=== PATIENT | female | born 1990 | race Caucasian/White ===

== ENCOUNTER 2020-09-21 22:20 | Emergency (ER) | payer SELFPAY ==
[2020-09-21 22:47] VITALS: BP 177/111; PULSE 88; RESP 14; TEMP 36.9; O2SAT 99; BMI 31.4
[2020-09-21 23:57] VITALS: BP 173/89; PULSE 83; O2SAT 97
--- NOTE | 2020-09-22 00:04 | ED_ITS ---
HPI - Female Genitourinary General: Chief complaint: Vaginal Bleeding Stated complaint: MENSTRUAL ISSUES Time Seen by Provider: 09/21/20 23:56 History of Present Illness: HPI Narrative: Patient is a 29-year-old female comes to the ED with have a abnormal vaginal bleeding. Patient says that she had tubal ligation 3 years ago and ever since then she is had abnormal bleeding. Patient says she has a past medical history of cervical cancer. Earlier this month patient had a 6-day stretch of bleeding that resolved and then for the past 8 days she has had heavy bleeding as well. Today patient says she has used at least 5 heavy pads she says this pattern of bleeding has been going on for the past couple years. She also says she has some lower pelvic cramping pain. She rates the pain an 8 out of 10. She came into the ED tonight because she wanted to try to figure out what is going on with her bleeding. She says she has been a patient for Dr. Jolley in the past, but has not been to [place]'s health [place] [facility] [place]. Denies any vaginal lesions, STDs, fever, chills, nausea/vomiting, constipation, diarrhea, dysuria or hematuria. Associated symptoms: Deny abdominal pain, headache(s), nausea or vaginal discharge Review of Systems Const: Denies: fever(s), chills or fatigue Eyes: Denies: change in vision or eye discomfort ENMT: Denies: throat pain, odynophagia, nasal discharge or nasal congestion Card: Denies: chest pain, palpitations, edema, swelling of feet/ankles, dyspnea on exertion or orthopnea Resp: Denies: dyspnea, productive cough or non-productive cough GI: Denies: abdominal pain, nausea, vomiting, diarrhea, constipation or hematochezia : Reports: vaginal bleeding and pelvic pain; Denies: flank pain, dysuria, hematuria, genital lesions or vaginal discharge Musc: Denies: neck pain, back pain or extremity swelling Skin/Breast: Denies: rash or new lesions Neuro: Denies: headache(s), numbness in extremities or weakness in extremities Physical Exam Const: COMMON NORMALS: no acute distress, patient oriented x3 and alert GENERAL APPEARANCE: cooperative and comfortable NUTRITIONAL APPEARANCE: overweight HENMT: COMMON NORMALS: normocephalic HEAD & SCALP: normocephalic MOUTH: Normal oral and palatal mucosa present THROAT: posterior oropharynx normal and uvula midline Neck/C-Spine: COMMON NORMALS: supple GENERAL: Yes normal visual inspection Resp: COMMON NORMALS: normal respiratory effort, No retractions, No use of accessory muscles and clear to auscultation bilaterally AUSCULTATION: clear to auscultation bilaterally Cardio: COMMON NORMALS: regular rate, regular rhythm, S1 normal heart sound present, S2 normal heart sound present, No gallops present (Cardio), No clicks present (Cardio), No murmurs present (Cardio) and Peripheral pulses 2+ throughout RATE: regular rate RHYTHM: regular rhythm HEART SOUNDS: S1 normal heart sound present and S2 normal heart sound present PERIPHERAL PULSES: Peripheral pulses 2+ throughout GI: COMMON NORMALS: Normal to inspection, nondistended, normoactive bowel sounds present, Soft to palpation, non-tender and no masses PALPATION: Yes Soft to palpation and Yes Tenderness to palpation present (GI) (Mild lower pelvic tenderness.) : COMMON NORMALS: Yes no CVA tenderness BLADDER/KIDNEY EXAM: Yes no CVA tenderness Back/Pelvis: COMMON NORMALS: no CVA tenderness Extremity: COMMON NORMALS: normal to inspection Neuro: COMMON NORMALS: patient oriented x3 and moves all extremities SENSORIUM/ORIENTATION: Yes alert Skin: GENERAL SKIN EXAM: dry skin Course Vital Signs: Vital signs: Vital Signs Temperature 98.5 F 09/21/20 22:47 Pulse Rate 79 09/22/20 01:15 Respiratory Rate 17 09/22/20 01:15 Blood Pressure 146/81 09/22/20 01:15 Pulse Oximetry 97 09/22/20 01:15 MDM - Female MDM Narrative: Medical decision making narrative: Patient is a 29-year-old female comes to the ED with chronic menorrhagia over the past 2 years. CBC and CMP were unremarkable. hCG quant 0.5. Pelvic ultrasound was performed and prelim report showed no acute findings but study was limited due to patient refusing transvaginal ultrasound. Patient said that she was a past patient for Dr. Jolley but has not seen her in a while. I told her I would put a referral in to case management for them to set up an appointment with [facility]. She is diagnosed with menorrhagia and given return to ED precautions. She was told that case management will be contacting her in the next several days set up appointment with women's health at [facility]. Patient understood and agreed with plan. Lab Data: Attestation: I reviewed the patient's lab results. Labs: Lab Results 09/22/20 09/22/20 09/22/20 Range/Units 00:04 00:04 00:04 WBC 7.5 (4.0-10.0) 10^3/ uL RBC 4.47 (4.1-5.3) 10^6/u L Hgb 13.7 (11.5-15.3) g/dL Hct 42.6 (37.0-47.0) % MCV 95.3 (81-99) fL MCH 30.6 (28.0-34.0) pg MCHC 32.2 (30.0-36.0) g/dL RDW 13.2 (12.1-15.1) % Plt Count 482 H (130-400) 10^3/c mm MPV 9.7 (7.4-10.4) fL Neut % (Auto) 50.3 % Lymph % (Auto) 38.0 % [place] % (Auto) 8.2 % Eos % (Auto) 2.3 % Baso % (Auto) 1.1 % Neut # (Auto) 3.76 (1.8-7.7) 10^3/u L Lymph # (Auto) 2.8 (0.8-4.8) 10^3/u L [place] # (Auto) 0.6 (0.2-0.9) 10^3/u L Eos # (Auto) 0.2 (0.0-0.8) 10^3/u L Baso # (Auto) 0.1 (0.0-0.1) 10^3/u L Nucleated RBC % (a uto) 0 % Nucleated RBCs # 0.0 /100WBC Sodium 140 (136-145) mmol/L Potassium 3.8 (3.5-5.1) mmol/L Chloride 106 (98-107) mmol/L Carbon Dioxide 23 (22-29) mmol/L Anion Gap 14.8 (5-19) BUN 11 (6-20) mg/dL Creatinine 0.7 (0.5-0.9) mg/dL GFR Calculation 97.6 (90-130) mL/min Glucose 108 (65-115) mg/dL Calculated Osmolal ity 290 (285-295) mOsm/k g Calcium 9.0 (8.5-10.5) mg/dL Total Bilirubin 0.2 (0.15-1.2) mg/dL AST 16 (0-32) U/L ALT 15 (0-33) U/L Alkaline Phosphata se 92 (35-105) IU/L Total Protein 6.9 (6.6-8.7) g/dL Albumin 3.8 (3.5-5.2) g/dL Globulin 3.1 (1.3-4.6) g/dL Ser , Ravi i-Qnt 0.50 mIU/mL Imaging Data: US: Attestation: I personally reviewed and interpreted this imaging study as follows: Radiologist's impression: Pelvic ultrasound?prelim report-vascular technologist sonographer wanted to do a transvaginal ultrasound as well to get better imaging but patient refused. Prelim report showed no acute findings. Pending final radiology report. Discharge Plan Discharge Patient Disposition: Home Clinical Impression: Menorrhagia Qualifiers: Menorrhagia type: with irregular cycle Qualified Code(s): N92.1 - Excessive and frequent menstruation with irregular cycle Condition: Stable Discharge Orders: Discharge Order (Routine); Ordered 09/22/20 Ordered By: Pb Trejo Discharge Diet: Regular Discharge Activity: Resume usual activity Patient Instructions: Menorrhagia (ED) Activity Restrictions/Additional Instructions: Follow-up with medical provider as directed. Case management should be contacting you in the next several days to set up an appointment with [facility] [place]. Take [id number] Tylenol or ibuprofen for pain. Return to the ER or your medical provider if condition worsens. Please read and understand discharge instructions. If any questions, please ask. Coding Level of Care Code ED Campus Executive Director for Obie Fwd Exam Comprehensive
[2020-09-22 00:24] LABS: Basophils # 0.1 10^3/uL (0.0-0.1); Basophils % 1.1 %; Eosinophils # 0.2 10^3/uL (0.0-0.8); Eosinophils % 2.3 %; Hematocrit 42.6 % (37.0-47.0); Hemoglobin 13.7 g/dL (11.5-15.3); Lymphocytes # 2.8 10^3/uL (0.8-4.8); Mean Corpuscular HGB Conc 32.2 g/dL (30.0-36.0); Mean Corpuscular Hemoglobin 30.6 pg (28.0-34.0); Mean Corpuscular Volume 95.3 fL (81-99); Mean Platelet Volume 9.7 fL (7.4-10.4); Monocytes # 0.6 10^3/uL (0.2-0.9); Monocytes % 8.2 %; Neutrophils # 3.76 10^3/uL (1.8-7.7); Neutrophils % 50.3 %; Nucleated Red Blood Cells % 0 %; Platelet Count 482 10^3/cmm (130-400); Red Blood Count 4.47 10^6/uL (4.1-5.3); Red Cell Distribution Width 13.2 % (12.1-15.1); White Blood Count 7.5 10^3/uL (4.0-10.0)
[2020-09-22] MEDS: HYDROcodone-acetaminophen 5-325 mg Tablet 1 TAB PO (00:47)
--- NOTE | 2020-09-22 00:47 | US_ITS ---
WS: [id number] ULTRASOUND PELVIS TECHNIQUE: Transabdominal. Patient deferred transvaginal. CLINICAL INFORMATION: vaginal bleeding and pelvic pain LMP: Irregular menses since ablation 2017 : No. COMPARISON: None. FINDINGS: Limited study due to body habitus and uterine position. History of uterine ablation. Uterus is retroverted Orientation: Retroverted/retroflexed Size: 9.2 cm x 5.2 cm x 4.5 cm Masses: None. Endometrium not well evaluated on the transabdominal examination. Adnexa: Neither ovary is visualized. Free fluid: None. Other findings: None. US/US pelvic complete* [id number] IMPRESSION: 1. Technically difficult examination. Patient deferred transvaginal. 2. Neither ovary is visualized today. 3. No free fluid in the cul-de-sac. 4. Retroverted/retroflexed uterus appears within normal limits. Endometrium n ot well visualized on transabdominal exam
[2020-09-22 00:55] LABS: Alanine Aminotransferase 15 U/L (0-33); Albumin Level 3.8 g/dL (3.5-5.2); Alkaline Phosphatase 92 IU/L (35-105); Anion Gap 14.8 (5-19); Aspartate Amino Transferase 16 U/L (0-32); Blood Urea Nitrogen 11 mg/dL (6-20); Carbon Dioxide 23 mmol/L (22-29); Chloride 106 mmol/L (98-107); Globulin 3.1 g/dL (1.3-4.6); Glomerular Filtration Rate 97.6 mL/min (90-130); Glucose 108 mg/dL (65-115); Osmolality Calculated 290 mOsm/kg (285-295); Potassium 3.8 mmol/L (3.5-5.1); Sodium 140 mmol/L (136-145); Total Bilirubin 0.2 mg/dL (0.15-1.2); Total Protein 6.9 g/dL (6.6-8.7)
[2020-09-22 01:15] VITALS: BP 146/81; PULSE 79; RESP 17; O2SAT 97
--- NOTE | 2020-09-22 15:08 | DCPLANNER ---
multimedia services manager had message to schedule a follow up appointment for patient with [facility]'s [facility]. multimedia services manager called the [facility] care clinic, spoke with Whitley, gave clinic patients information. multimedia services manager was told that patients information will be printed and reviewed. Clinic will call patient with appointment information.
--- NOTE | 2020-09-24 10:10 | DCPLANNER ---
Patient has a follow up appointment scheduled for Wednesday, October 07, 2020 at 10:[address] Reno at [facility]. Clinic will call patient with appointment information.
--- NOTE | 2020-10-10 07:43 | DCPLANNER ---
Patient had a follow up appointment scheduled for 10.07.20 with [facility] - patient did attend appointment.
== END 2020-09-22 02:00 | disposition home or self-care (01) ==
PROVIDERS: Emergency Provider Physician Assistant
DX: N92.1 Excessive and frequent menstruation with irregular cycle (principal); Z85.41 Personal history of malignant neoplasm of cervix uteri
CPT/HCPCS: 12345; 76856; 80053; 84702; 85025; 99282; 99283

== ENCOUNTER → 2020-10-07 11:20 | Outpatient (BNVA) | payer SELFPAY | PROVIDERS: Visit Provider Obstetrics & Gynecology | DX: N93.8 Other specified abnormal uterine and vaginal bleeding (principal); R10.2 Pelvic and perineal pain; G89.29 Other chronic pain; N92.1 Excessive and frequent menstruation with irregular cycle; Z12.4 Encounter for screening for malignant neoplasm of cervix | CPT/HCPCS: 83001; 84146; 84443; 84702; 85025; 88175 ==

== ENCOUNTER → 2020-10-08 13:07 | Outpatient (BNVA) | payer SELFPAY | PROVIDERS: Visit Provider Obstetrics & Gynecology | DX: N92.0 Excessive and frequent menstruation with regular cycle (principal); N83.291 Other ovarian cyst, right side; N83.292 Other ovarian cyst, left side | CPT/HCPCS: 76830 ==

== ENCOUNTER → 2021-01-08 13:23 | Outpatient (BNVA) | payer SELFPAY | PROVIDERS: Visit Provider Obstetrics & Gynecology | DX: D25.0 Submucous leiomyoma of uterus (principal); D25.1 Intramural leiomyoma of uterus; Z20.822 Contact with and (suspected) exposure to COVID-19; D25.2 Subserosal leiomyoma of uterus; G89.29 Other chronic pain; N93.9 Abnormal uterine and vaginal bleeding, unspecified; R10.2 Pelvic and perineal pain | CPT/HCPCS: 87635 ==

== ENCOUNTER 2021-01-14 16:54 | Observation (INO) | payer SELFPAY ==
[2021-01-12 11:55] VITALS: BMI 46.7
[2021-01-12 12:25] LABS: OR HCG Qualitative Urine Negative (Negative)
--- NOTE | 2021-01-12 12:28 | ANES.PREANE2 ---
Pre-Anesthetic Assessment Pre-Anesthetic Assessment: Height/Weight: Height 1.68 m Weight 131.542 kg Preop Diagnosis: Menorrhagia, chronic pelvic pain, uterine leiomyoma Proposed Procedure: Operation Date: 01/14/21 13:05 Proposed Procedures p Total Vaginal Hysterectomy 96814 r10.2 n93.9 d25.9(Not Applicable) - Aubrey Reno MD Familial anesthetic complications: NOne Social: Social History: Tobacco and No alcohol Exam: Pre-Anes Outpt Exam: alert, oriented x 3, clear to auscultation bilaterally and regular rate & rhythm Airway: Cervical ROM: WNL MP: 3 Dentition: Full Metabolic: Metabolic: Morbid obesity Anesthetic Plan: ASA status: 2 Anesthesia: General Risk of > 500 ml blood loss (7ml/kg in children): No PFSH Anesthesia PFSH: Medical History (Updated 11/10/20 @ 13:26 by Maryuri Poon LPN) Menorrhagia Family History Father Hypertension Heart disease Mother Hypertension Heart disease Grandfather Colon cancer, Onset Age: 70 paternal Denies family history of Ovarian cancer Diabetes Clotting disorder Hyperlipidemia Breast cancer Anesthesia complication Bleeding disorder Uterine cancer Thyroid condition Stroke Social History (Updated 01/12/21 @ 08:57 by Kelsey Serrano) Smoking and tobacco status: current every day smoker cigarettes Packs smoked per day: 0.5 Alcohol intake: current Alcohol intake frequency: holidays/special occasions only Alcohol type: wine Substance/Drug Use: never Data Anesthesia Other Labs: Laboratory Results - last 48 hr 01/12/21 11:53 Urine HCG, Qual Negative Cardiac Studies: No Data to Display
[2021-01-12 12:34] LABS: Add Urine Microscopic? NO
[2021-01-12 12:47] LABS: Basophils # 0.1 10^3/uL (0.0-0.1); Basophils % 0.7 %; Eosinophils # 0.1 10^3/uL (0.0-0.8); Eosinophils % 1.1 %; Hematocrit 37.7 % (37.0-47.0); Hemoglobin 12.5 g/dL (11.5-15.3); Lymphocytes # 2.6 10^3/uL (0.8-4.8); Lymphocytes % 29.9 %; Mean Corpuscular HGB Conc 33.2 g/dL (30.0-36.0); Mean Corpuscular Hemoglobin 31.5 pg (28.0-34.0); Monocytes # 0.7 10^3/uL (0.2-0.9); Neutrophils # 5.24 10^3/uL (1.8-7.7); Neutrophils % 60.1 %; Nucleated Red Blood Cells % 0 %; Platelet Count 470 10^3/cmm (130-400); Red Blood Count 3.97 10^6/uL (4.1-5.3); Red Cell Distribution Width 13.1 % (12.1-15.1); White Blood Count 8.7 10^3/uL (4.0-10.0)
[2021-01-12 12:57] LABS: Anion Gap 13.7 (5-19); Blood Urea Nitrogen 7 mg/dL (6-20); Calcium 8.5 mg/dL (8.5-10.5); Carbon Dioxide 23 mmol/L (22-29); Chloride 106 mmol/L (98-107); Glucose 95 mg/dL (65-115); Osmolality Calculated 286 mOsm/kg (285-295); Potassium 3.7 mmol/L (3.5-5.1); Sodium 139 mmol/L (136-145)
[2021-01-12 13:09] LABS: Urine Appearance Clear (CLEAR); Urine Color Yellow (Yellow); pH Urine 7 (5-7)
[2021-01-12 13:10] LABS: Bilirubin Urine Neg (Negative); Blood Urine Neg (Negative); Glucose Urine UA Norm (Normal); Ketones Urine Negative (Negative); Leukocyte Esterase Urine Negative (Negative); Nitrate Urine Negative (Negative); Protein Urine Neg (Negative); Urobilinogen Urine Norm (Negative)
[2021-01-14] VITALS (15 sets, daily range): BP systolic 117–150; BP diastolic 68–107; PULSE 53–88; RESP 13–23; TEMP 36.1–37.2; O2SAT 91–99
[2021-01-14] MEDS: sodium chloride 0.9% 500 ML IV (12:03)
[2021-01-14] MEDS: scopolamine 1.5 Patch 1 PATCH TRANSDERMA (12:04)
[2021-01-14 12:23] LABS: OR HCG Qualitative Urine Negative (Negative)
[2021-01-14] MEDS: vancomycin 1,000 MG in sodium chloride 0.9% 250 ML 250 MG IV (12:30)
[2021-01-14] MEDS: sodium chloride 0.9% 1,000 ML 30 ML IV (12:52)
--- NOTE | 2021-01-14 13:22 | P.ANESUD_ITS ---
Pre-Anesthetic Update Pre-Anesthetic Assessment: Date of Surgery/Procedure: 01/14/21 Preop Lisa gnosis: Menorrhagia, chronic pelvic pain, uterine leiomyoma Proposed Procedure: Operation Date: 01/14/21 13:05 Proposed Procedures p Total Vaginal Hysterectomy 08211 r10.2 n93.9 d25.9(Not Applicable) - Aubrey Reno MD Any changes to Pre-Anesthetic Assessment?: No Last Intake: Intake Last Liquid Date 01/13/21 Last Liquid Time 23:59 Last Solid Date 01/13/21 Last Solid Time 22:00 Labs Last 48hrs: Laboratory Results - last 48 hr 01/12/21 01/14/21 12:18 12:21 Urine HCG, Qual Negative Blood Type O Positive Rho(D) Type Positive / 4+ Antibody Screen Negative Vitals: Temperature 97.8 F 01/14/21 11:39 Temperature Source Temporal Artery S can 01/14/21 11:39 Pulse Rate 80 01/14/21 11:39 Respiratory Rate 16 01/14/21 11:39 Blood Pressure 150/107 01/14/21 11:39 Blood Pressure Renuka n 121 01/14/21 11:39 Pulse Oximetry 96 01/14/21 11:39 Oxygen Delivery Me thod 01/14/21 11:39 Exam: Pre-Anes Outpt Exam: alert, oriented x 3, clear to auscultation bilaterally and regular rate & rhythm Cardiac Studies: No Data to Display
--- NOTE | 2021-01-14 14:15 | W.PM.OPSUD ---
Surgery/Procedure H&P Update DATE OF PROCEDURE: January 14, 2021 DATE H&P PERFORMED: 01/12/21 H&P UPDATE INFORMATION: I have reviewed H&P completed within last 30 days, I have examined patient prior to procedure and No changes to prior documentation PREOP DIAGNOSIS: Menorrhagia, chronic pelvic pain, uterine leiomyoma PLANNED PROCEDURE: Operation Date: 01/14/21 13:05 Proposed Procedures p Total Vaginal Hysterectomy 37844 r10.2 n93.9 d25.9(Not Applicable) - Aubrey Reno MD
[2021-01-14] MEDS: levofloxacin-dextrose 5 % 500 MG/100 ML PREMIX 100 MG IV (15:01)
--- NOTE | 2021-01-14 16:25 | PM.OP ---
Operative Report Date of procedure: January 14, 2021 Pre-op Diagnosis: Menorrhagia, chronic pelvic pain, uterine leiomyoma Post-op diagnosis: same Post-op Findings: Enlarged uterus Procedure Done: Total vaginal hysterectomy Pathology: Uterus Surgeon: Aubrey Reno MD Anesthesia: General Estimated blood loss (mL): 200 IV fluids (mL): 1,100 Urine output (mL): 300 Complications: None Findings: Enlarged uterus Condition: stable Disposition: PACU Brief History: 30-year-old female with abnormal uterine bleeding unresponsive to medical management chronic pelvic pain unresponsive to medical management and uterine leiomyoma. Procedure: After informed consent and risks, benefits, indications and alternatives reviewed with the patient was taken to the operating room. The patient was placed in dorsal lithotomy position prepped, and draped in the usual sterile fashion. The pre-procedure timeout verifying the correct patient, procedure, site and side, could not requirements was performed and acknowledge by the OR team. A Frances catheter was placed. A Bookwalter vaginal retractor was placed into the vagina in usual manner visualize the cervix. Cervix was grasped with a single tooth tenaculum and circumferentially infiltrated with 1% Xylocaine with epinephrine. Then cervix was circumferentially incised with bovie and the bladder was dissected off the pubovesical cervical fascia anteriorly with a sponge stick and Metzenbaum scissors. The anterior peritoneal reflection was identified and the anterior cul-de-sac was entered sharply with Metzenbaum scissors. The same procedure was performed posteriorly and a posterior colpotomy was made through the posterior cul-de-sac space without difficulty and the posterior blade of the Bookwalter vaginal retractor was advanced posteriorly into the cul-de-sac. At this time, the left and right uterosacral ligaments were isolated and ligated with 0 Vicryl. The Enseal device was placed over the uterosacral ligaments on either side and was then used in a serial fashion up through the cardinal ligaments bilaterally cross-clamped, cut, and sealed with the Enseal device. Finally, the uterine arteries were cross-clamped, cut, sealed and ligated with the Enseal device. Hemostasis was assured. The broad ligaments were then serially clamped, sealed and cut with the Enseal device on both sides. Excellent hemostasis was visualized. Both cornua were clamped, sealed and cut with the Enseal device. Then the pedicles were then suture ligated with excellent hemostasis. The uterus was excised and submitted for pathologic evaluation. No other abnormalities were noted in the pelvic cavity. The peritoneum was then closed in a pursestring fashion with 0 Vicryl suture. The vaginal cuff angles were closed with [id number] #0 Vicryl suture on both sides and transfixed with the ipsilateral cardinal and uterosacral ligaments. The patient was given indigo carmine. the remainder of the vaginal cuff was closed with #0 Vicryl in a running locked fashion. Frances catheter was yielding clear blue urine. A vaginal packing with Premarin cream was placed and the patient was taken out of dorsal lithotomy position and awakened from the general anesthesia. The patient tolerated the procedure well and was taken to the PACU recovery room in a stable condition. Sponge, lap, needle and instruments counts were correct x3.
--- NOTE | 2021-01-14 16:42 | SUR.PHASEI ---
1635 PATIENT TO PACU FROM OR. RR EVEN AND UNLABORED. PWD. PATEL CATH IN PLACE. SIMPLE MASK AT 10L, SPO2 97%
[2021-01-14] MEDS: ketorolac 30 mg/mL INJ IVP ×2 (17:08→23:06)
[2021-01-14] MEDS: HYDROcodone-acetaminophen 5-325 mg Tablet PO (17:28)
--- NOTE | 2021-01-14 17:31 | SUR.PHASEI ---
1711 PATIENT TO OB AT THIS TIME. RR EVEN AND UNLABORED. NO DISTRESS. PATEL CATH IN PLACE.
--- NOTE | 2021-01-14 20:24 | ANE.PACU2 ---
Inpatient post-anesthesia follow up: Airway intact: Yes Vital signs: Temperature 98.1 F Pulse Rate 88 Respiratory Rate 20 Blood Pressure 137/73 Pulse Oximetry 96 Oxygen Delivery Me thod Room Air Oxygen Flow Rate 10 Fraction of Inspir ed Oxygen Hydration adequate: Yes Nausea and vomiting: No Pain level: 2 Mental status: Baseline
[2021-01-14] MEDS: acetaminophen 325 mg Tablet 650 MG PO (22:15)
--- NOTE | 2021-01-14 23:00 | PC.NURSE ---
Patient up to chair. Tolerates activity well. AR RN
[2021-01-14] MEDS: dextrose 5%-lactated ringers 1,000 ML 125 ML IV (23:07)
[2021-01-15 00:15] VITALS: BP 120/77; PULSE 84; RESP 16; O2SAT 96
[2021-01-15 04:15] VITALS: BP 123/73; PULSE 91; RESP 15; TEMP 37.3; O2SAT 93
[2021-01-15 04:52] LABS: Hematocrit 34.9 % (37.0-47.0); Hemoglobin 11.6 g/dL (11.5-15.3); Mean Corpuscular HGB Conc 33.2 g/dL (30.0-36.0); Mean Corpuscular Hemoglobin 31.4 pg (28.0-34.0); Mean Corpuscular Volume 94.6 fL (81-99); Mean Platelet Volume 10.4 fL (7.4-10.4); Platelet Count 484 10^3/cmm (130-400); Red Blood Count 3.69 10^6/uL (4.1-5.3); Red Cell Distribution Width 13.2 % (12.1-15.1); White Blood Count 14.1 10^3/uL (4.0-10.0)
[2021-01-15] MEDS: ibuprofen 800 mg tablet PO (09:00)
[2021-01-15] MEDS: docusate sodium 100 mg Capsule PO (09:00)
--- NOTE | 2021-01-15 09:44 | P.DS_ITS ---
Discharge Providers BEAUTY CULTURIST APPRENTICE Date of Admission: 01/14/21 16:54 Date of Discharge: 01/15/21 Attending Provider at Admission: Aubrey Reno MD Attending Provider at Discharge: Aubrey Reno MD Diagnoses at Discharge Discharge Diagnosis (1) Menorrhagia: Status: Acute Qualifiers: Menorrhagia type: with irregular cycle Qualified Code(s): N92.1 - Excessive and frequent menstruation with irregular cycle (2) Chronic pelvic pain in female: Status: Acute (3) Uterine leiomyoma: Status: Acute Qualifiers: Uterine leiomyoma location: intramural, submucous, and subserous Qualified Code(s): D25.1 - Intramural leiomyoma of uterus; D25.0 - Submucous leiomyoma of uterus; D25.2 - Subserosal leiomyoma of uterus (4) Right ovarian cyst: Status: Acute Reason for Visit Reason for Visit: total vaginal hysterectomy Hospital Course Hospital Course Mrs. Perez is a 30 y/o with abnormal uterine bleeding, chronic pelvic pain unresponsive to medical management, uterine leiomyoma and right ovarian cyst. Admitted for planned total vaginal hysterectomy. The total abdominal hysterectomy was performed without complications. Postop recovery was uneventful. Tolerating diet well. Urine output is adequate. Ambulating without difficulty. Physical Exam Narrative: EXAM NARRATIVE: GA: Alert and oriented ?3. HEENT: WNL. Heart: Regular rate and rhythm. Lungs: Clear to auscultation bilaterally. Abdomen: Bowel sounds present, nontender, minimal tenderness, incision clean and dry, no redness, pain or edema. NETWORK DESIGN ARCHITECT: No bleeding. Extremities: No edema, no cyanosis, no calves pain. Urinary Catheter Management^: Frances Latex: Cath Placed During This Visit: yes Urinary Catheter Date of Insertion: 01/14/21 Urinary Catheter Time of Insertion: 15:14 Discharge Data Data Completed and Pending: Pending at discharge Category Date Time Status Pathology: Surgic al [PTH] Routine Pth 01/14/21 17:00 Received Labs from last 24 hours 01/15/21 01/14/21 04:00 12:21 WBC 14.1 H RBC 3.69 L Hgb 11.6 Hct 34.9 L MCV 94.6 MCH 31.4 MCHC 33.2 RDW 13.2 Plt Count 484 H MPV 10.4 Urine HCG, Qual Negative Vitals: Last Vital Signs Temp 99.1 F 01/15/21 04:15 Pulse 91 01/15/21 04:15 Resp 15 01/15/21 04:15 BP 123/73 01/15/21 04:15 Pulse Ox 93 01/15/21 04:15 Discharge Plan Discharge Patient Disposition: Home Condition: Stable Prescriptions: New ibuprofen 800 mg tablet 800 mg PO TID PRN (Reason: pain) Qty: 60 RF: 0 acetaminophen 325 mg capsule 325 mg PO Q4H PRN (Reason: fever or pain) Qty: 60 RF: 0 hydrocodone-acetaminophen 7.5-300 mg tablet 1 tab PO Q6H Qty: 20 RF: 0 No Action No Known Home Medications RF: 0 Discharge Orders: Discharge Order (Routine); Ordered 01/15/21 Ordered By: Aubrey Reno Referrals: Aubrey Reno MD [Physician] - 2 weeks Discharge Diet: Usual diet Discharge Activity: Increase activity as tolerated Patient Instructions: Vaginal Hysterectomy (DC), OB Discharge Report Activity Restrictions/Additional Instructions: 1. Please call [facility] on next working day to make your post-operative appointment in 2 weeks. 2. Please stay home until you come back to the clinic on first post-operative check up. 3. Please follow instructions on your medications CAREFULLY. 4. If you have abdominal incision, do not cover it unless dressing is necessary because of drainage. OK to shower, but avoid bath. Leave steri-strips until they fall off. If they are still on one week after surgery, you may remove them. 5. If you had vaginal surgery, your doctor may instruct you to take SITZ bath. 6. Yellow, blood tinged odorous vaginal discharge is usually normal after hysterectomy or vaginal surgeries. 7. No sexual intercourse, tampons, or douches until you are completely released from the post-operative care. 8. Avoid constipation by eating right and maybe using some Metamucil or Milk of Magnesia. 9. All prescription refills are given during the working hours. Please do no wait till it runs out. Call the clinic at [phone] before your medication runs out. The clinic will get in touch with your doctor to prescribe medications if necessary. 10. Please remain within 40 mile radius from our hospital because emergencies do happen now and then during the post-operative period. 11. If you have stairs at home, take one step at a time slowly and minimize the number of trips. It helps to stay in one floor for the next few days. No lifting except what you can lift by one hand until you are released from the post-operative care. 12. Driving is discouraged until you are well healed. It may be 3-4 weeks before you feel strong enough to drive. You should be able to turn and look through the rear window without pain and you should be able to push the brake pedal very hard without pain before you drive. No fast rules, but SAFETY should be your primary concern. DO NOT drive if you are on sedating medications such as narcotics. 13. Call the clinic (during working hours) to make urgent appointment or go to the Emergency room, if any of the following occurs: i. Vaginal bleeding becomes heavy, more than a period. ii. Incision becomes red and sore, or drains pus. iii. Your temperature is over 100.4 or you have chill. iv. IV site becomes red and swollen (a little ``knot?? is usually OK) v. Persistent nausea and vomiting vi. Persistent constipation or diarrhea vii. Rash or allergic reaction to medications. Discharge Attestations BEAUTY CULTURIST APPRENTICE Time Spent in Discharge Care*: greater than 30 min Coding Level of Care Code Acute Lineman A Class for g Fwd Diagnoses Menorrhagia N92.1 Menorrhagia type: with irregular cycle Chronic pelvic pain in female R10.2; G89.29 Uterine leiomyoma D25.1; D25.0; D25.2 Uterine leiomyoma location: intramural, submucous, and subserous Right ovarian cyst N83.201
[2021-01-15 10:15] VITALS: BP 156/92; PULSE 73; RESP 15; TEMP 36.5; O2SAT 97
== END 2021-01-15 10:37 | disposition home or self-care (01) ==
LOC: OBGYN 19:01
PROVIDERS: Anesthesiology; Admitting Provider Obstetrics & Gynecology; Visit Provider Obstetrics & Gynecology
PROC: (CPT 58260; principal; 2021-01-14 13:05)
DX: N92.1 Excessive and frequent menstruation with irregular cycle (principal); G89.29 Other chronic pain; R10.2 Pelvic and perineal pain; D25.1 Intramural leiomyoma of uterus; D25.0 Submucous leiomyoma of uterus; D25.2 Subserosal leiomyoma of uterus; N83.201 Unspecified ovarian cyst, right side; E66.01 Morbid (severe) obesity due to excess calories; Z68.42 Body mass index [BMI] 45.0-49.9, adult; F17.210 Nicotine dependence, cigarettes, uncomplicated
CPT/HCPCS: 58260; 36415; 80048; 81003; 81025; 84703; 85025; 85027; 86850; 86900; 88307; 96361; 96365; G0378; J1100; J1885; J1956; J2250; J2405; J2550; J2704; J2710; J3010; J3370; J3490; J7030; J7040; J7050

== ENCOUNTER 2021-07-22 22:55 | Emergency (ER) | payer MEDICAID, SELFPAY ==
--- NOTE | 2021-07-22 23:11 | ECG_ITS ---
[facility] Test Date: 2021-07-22 Pat Name: Ally Perez Department: Room: Gender: Female Instructional Design Manager: : 1990 Requested By: Shawn Duran Order Number: [id number] Jesús MD: Amberly Orozco M.D. Measurements Intervals [place] Rate: 82 P: 52 WI: 150 QRS: 63 QRSD: 97 T: 48 QT: 371 QTc: 436 Interpretive Statements SINUS RHYTHM INTERPRETATION BASED ON A DEFAULT AGE OF 40 YEARS No previous ECG available for comparison Electronically Signed On 07-24-2021 7:04:34 CDT by Amberly Orozco M.D. [email or web address]
--- NOTE | 2021-07-22 23:11 | XRR_ITS ---
PROCEDURE INFORMATION: Exam: XR Chest Exam date and time: 07/22/2021 11:11 PM Age: 30 years old Clinical indication: Sternal or substernal pain; Additional info: Evalute for chest pain TECHNIQUE: Imaging protocol: XR of the chest. Views: 1 view. COMPARISON: CR Chest 1 view [id number] 11/14/2014 12:16 PM FINDINGS: Lungs: Unremarkable. No consolidation. Pleural spaces: Unremarkable. No pleural effusion. No pneumothorax. Heart/Mediastinum: Unremarkable. No cardiomegaly. Bones/joints: No acute findings. XR/XR chest 1V portable [id number] IMPRESSION: No acute findings.
[2021-07-22 23:22] LABS: Glucose Point of Care 86 mg/dL (70-110)
[2021-07-22 23:27] LABS: Basophils # 0.1 10^3/uL (0.0-0.1); Basophils % 0.8 %; Eosinophils # 0.2 10^3/uL (0.0-0.8); Eosinophils % 1.5 %; Hematocrit 46.1 % (37.0-47.0); Hemoglobin 15.2 g/dL (11.5-15.3); Lymphocytes # 3.5 10^3/uL (0.8-4.8); Lymphocytes % 30.9 %; Mean Corpuscular Hemoglobin 31.4 pg (28.0-34.0); Mean Corpuscular Volume 95.2 fl (81-99); Monocytes # 0.8 10^3/uL (0.2-0.9); Monocytes % 6.9 %; Neutrophils # 6.72 10^3/uL (1.8-7.7); Neutrophils % 59.6 %; Nucleated Red Blood Cells % 0 %; Platelet Count 514 10^3/cmm (130-400); Red Blood Count 4.84 10^6/uL (4.1-5.3); Red Cell Distribution Width 12.9 % (12.1-15.1); White Blood Count 11.3 10^3/uL (4.0-10.0)
--- NOTE | 2021-07-22 23:28 | PC.NURSE ---
armando cannot provide urine sample at this time.
--- NOTE | 2021-07-22 23:34 | ED_ITS ---
HPI - General Adult General: Chief complaint: Extremity Problem,Nontraumatic Stated complaint: left numbness,high B/P Time Seen by Provider: 07/22/21 23:11 History of Present Illness: HPI narrative: Patient is a 30-year-old female with family history of cardiac diseases, smoking who presents the emergency room with complaints of left arm tingling since yesterday night, and shortness of breath and 6 hours ago. Patient reports left arm numbness. Denies any changes in strength, sensation, or recent trauma. Patient denies any chest pain. Reports that her father had a heart attack at the age of 43. Patient denies any history of diabetes, hypertension, exertional chest pain, pleuritic chest pain, nausea/vomiting, diaphoresis, back pain, or abdominal pain. Onset: 1 day ago Duration:1 day Location:home Severity:modeate Review of Systems Narrative: Constitutional: No fever, no chills. HEENT: No vision changes CV: No chest pain, no palpitations PULM: no cough, +dyspnea. GI: No abdominal pain, no N/V/D. : No dysuria MSKEL: No muscle pain SKIN: No new rashes, no lesions. NEURO: No headache, no focal weakness. +L arm numbness HEME: No visible bruises PSYCH: Normal mood PFSH ED PFSH: Medical History Menorrhagia Family History Father Hypertension Heart disease Mother Hypertension Heart disease Grandfather Colon cancer, Onset Age: 70 paternal Denies family history of Ovarian cancer Diabetes Clotting disorder Hyperlipidemia Breast cancer Anesthesia complication Bleeding disorder Uterine cancer Thyroid condition Stroke Social History (Updated 02/23/21 @ 14:03 by Danyelle Tsai RN) Smoking and tobacco status: current every day smoker cigarettes Packs smoked per day: 0.5 Alcohol intake: current Alcohol intake frequency: holidays/special occasions only Alcohol type: wine Female Reproductive History: Date of last menstrual period: 01/15/21 Physical Exam Narrative: EXAM NARRATIVE: Head: Atraumatic Eyes: PERRL, conjunctiva without injection ENT: Mucous membrane moist NECK: Supple, ROM intact LUNGS: LCTAB, no crackles/rhonchi CV: RRR ABDOMEN: Soft, nontender in all quadrants EXTREMITY: Normal ROM SKIN: No rash or erythema NEURO: Mental status? Awake, alert, and oriented to self, year, month, location, and situation.? Following simple axial and appendicular commands.? Has appropriate fund of knowledge, comprehension, and insight.? Able to recall and understands pertinent aspects of medical history and current treatment status.? ? Language? Speech is fluent without word-finding difficulties.? Intact naming, expression, cashier receptionist, and repetition.? ? Cranial nerves? 2,3,4,6: PERRL, EOMI with no nystagmus. 5: Intact sensation to light touch, symmetric? 7: Smile symmetrical, no facial droop.? 8: Hearing grossly intact.? 9,10: Normal palate movement.? 11: Normal strength in trapezius bilaterally 12: Tongue protrudes midline.? ? Motor examination? Normal bulk & tone. Strength as follows (R/L): Delts (5/5), Biceps (5/5), Triceps (5/5), Wrist ext (5/5), hip flexors (5/5), plantarflexors (5/5), dorsiflexors (5/5). ? Sensation? Light Touch: Grossly intact and equal in upper and lower extremities bilaterally? Romberg: Negative.? Distal joint position sense intact ? Coordination? Hffvit-yb-wbac-finger movements intact without dysmetria or past-pointing.? Rapid fingertaps: preserved amplitude without decriment.? No tremor, myoclonus or truncal ataxia.? ? Gait/stance? Steady, normal narrow base gait with appropriate arm swing and turning.? Tandem gait without hesitation or loss of balance. PSYCH: Normal mood and affect Course Vital Signs: Vital signs: Vital Signs Temperature 96.7 F L 07/22/21 23:45 Pulse Rate 78 07/23/21 02:20 Respiratory Rate 20 H 07/23/21 02:20 Blood Pressure 147/80 07/23/21 02:20 Pulse Oximetry 97 07/23/21 02:20 MDM - General Adult MDM Narrative: Medical decision making narrative: Patient is a 30-year-old female who presents the emergency room for evaluation of left arm numbness x1 day and shortness breath x6 hours. On exam, patient is hemodynamically stable, no focal lung findings. Neuro exam intact. Given shortness of breath, will evaluate for ACS at this time. EKG showing regular sinus rhythm at HT of [82]. Normal axis. No ST el evations/depressions to suggest coronary occlusion. Normal RI, QRS, QT intervals. Troponin x 2 normal. EKG is non ischemic. No focal weakness unlikley to be stroke. Patient continues to HDS without any evolving neuro symptoms. Given numbness, will given followup with Dr. Aggarwal. Doubt ACS/PE or other emergent causes of chest pain. No suspicion for aortic dissection given no widened mediastinum, 2+ upper extremity pulses, or tearing pain. No suspicion for PE given no pleuritic chest pain, recent immobilization or surgery hemoptysis, or other VTE risk factors. EKG is non-ischemic. XR no rmal. Disposition: Discharge. Patient counseled regarding diagnostic impression, treatment plan. Patient given ED strict return precautions to return for continuation, worsening, or development of new symptoms. Instructed to f/u w/ PCP regarding symptoms today. Patient verbalized understanding. Lab Data: Labs: Lab Results 07/22/21 07/22/21 07/22/21 23:17 23:21 23:21 WBC 11.3 10^3/uL H 10 ^3/uL (4.0-10.0) RBC 4.84 10^6/uL 10^6 /uL (4.1-5.3) Hgb 15.2 g/dL g/dL (11.5-15.3) Hct 46.1 % % (37.0-47.0) MCV 95.2 fl fl (81-99) MCH 31.4 pg pg (28.0-34.0) MCHC 33.0 g/dL g/dL (30.0-36.0) RDW 12.9 % % (12.1-15.1) Plt Count 514 10^3/cmm H 10 ^3/cmm (130-400) MPV 10.0 fL fL (7.4-10.4) Neut % (Auto) 59.6 % % Lymph % (Auto) 30.9 % % [place] % (Auto) 6.9 % % Eos % (Auto) 1.5 % % Baso % (Auto) 0.8 % % Neut # (Auto) 6.72 10^3/uL 10^3 /uL (1.8-7.7) Lymph # (Auto) 3.5 10^3/uL 10^3/ uL (0.8-4.8) [place] # (Auto) 0.8 10^3/uL 10^3/ uL (0.2-0.9) Eos # (Auto) 0.2 10^3/uL 10^3/ uL (0.0-0.8) Baso # (Auto) 0.1 10^3/uL 10^3/ uL (0.0-0.1) Nucleated RBC % (a uto) 0 % % Nucleated RBCs # 0.0 /100WBC /100W BC Sodium 135 mmol/L L mmol /L (136-145) Potassium 3.6 mmol/L mmol/L (3.5-5.1) Chloride 100 mmol/L mmol/L (98-107) Carbon Dioxide 24 mmol/L mmol/L (22-29) Anion Gap 14.6 (5-19) BUN 7 mg/dL mg/dL (6-20) Creatinine 0.6 mg/dL mg/dL (0.5-0.9) GFR Calculation 115.9 mL/min mL/m in (90-130) Glucose 80 mg/dL mg/dL (65-115) POC Glucose 86 mg/dL mg/dL (70-110) Calculated Osmolal ity 277 mOsm/kg L mOs m/kg (285-295) Calcium 9.0 mg/dL mg/dL (8.5-10.5) Troponin T Baselin e Troponin T 120 Min [place] Troponin T Ser , Ravi i-Qnt 0.50 mIU/mL mIU/m L Urine Color Urine Appearance Urine pH Ur Specific Gravit y Urine Protein Urine Glucose (UA) Urine Ketones Urine Blood Urine Nitrate Urine Bilirubin Urine Urobilinogen Ur Leukocyte Katelyn ase 07/22/21 07/22/21 07/22/21 23:21 23:21 23:59 WBC RBC Hgb Hct MCV MCH MCHC RDW Plt Count MPV Neut % (Auto) Lymph % (Auto) [place] % (Auto) Eos % (Auto) Baso % (Auto) Neut # (Auto) Lymph # (Auto) [place] # (Auto) Eos # (Auto) Baso # (Auto) Nucleated RBC % (a uto) Nucleated RBCs # Sodium Potassium Chloride Carbon Dioxide Anion Gap BUN Creatinine GFR Calculation Glucose POC Glucose Calculated Osmolal ity Calcium Troponin T Baselin e 6 ng/L ng/L (0-10) Troponin T 120 Min [place] Troponin T Ser , Ravi i-Qnt Cancelled Urine Color Yellow (Yellow) Urine Appearance Clear (CLEAR) Urine pH 5 (5-7) Ur Specific Gravit y 1.005 (1.005-1.030) Urine Protein Neg (Negative) Urine Glucose (UA) Norm (Normal) Urine Ketones Negative (Negative) Urine Blood Neg (Negative) Urine Nitrate Negative (Negative) Urine Bilirubin Neg (Negative) Urine Urobilinogen Norm mg/dL mg/dL (Negative) Ur Leukocyte Katelyn ase Negative (Negative) 07/23/21 01:32 WBC RBC Hgb Hct MCV MCH MCHC RDW Plt Count MPV Neut % (Auto) Lymph % (Auto) [place] % (Auto) Eos % (Auto) Baso % (Auto) Neut # (Auto) Lymph # (Auto) [place] # (Auto) Eos # (Auto) Baso # (Auto) Nucleated RBC % (a uto) Nucleated RBCs # Sodium Potassium Chloride Carbon Dioxide Anion Gap BUN Creatinine GFR Calculation Glucose POC Glucose Calculated Osmolal ity Calcium Troponin T Baselin e Troponin T 120 Min [place] 6.00 ng/L ng/L (0-10) [place] Troponin T 0 ABS# ABS# (0-10) Ser , Ravi i-Qnt Urine Color Urine Appearance Urine pH Ur Specific Gravit y Urine Protein Urine Glucose (UA) Urine Ketones Urine Blood Urine Nitrate Urine Bilirubin Urine Urobilinogen Ur Leukocyte Katelyn ase Imaging Data^: Other Imaging: Radiologist's impression: [address] [id number] ReportSigned Patient: Ally Perez #: [id number]: /Sex: 30 / FADM Date: 07/22/21Loc: ERRoom/Bed:Attending Dr: Ordering Provider/Ordering MD: Shawn Duran MD Date of Service: 07/22/21 Procedure(s): XR chest 1V portable [id number] Accession Number(s): [id number] Report Number: [id number] PROCEDURE INFORMATION: Exam: XR Chest Exam date and time: 07/22/2021 11:11 PM Age: 30 years old Clinical indication: Sternal or substernal pain; Additional info: Evalute for chest pain TECHNIQUE: Imaging protocol: XR of the chest. Views: 1 view. COMPARISON: CR Chest 1 view [id number] 11/14/2014 12:16 PM FINDINGS: Lungs: Unremarkable. No consolidation. Pleural spaces: Unremarkable. No pleural effusion. No pneumothorax. Heart/Mediastinum: Unremarkable. No cardiomegaly. Bones/joints: No acute findings. XR/XR chest 1V portable [id number] IMPRESSION: No acute findings. Dictated By:Agustin Ernst MDSigned By:Agustin Ernst MDSigned Date/Time:07/23/21 0122DD/ 012 Discharge Plan Discharge Patient Disposition: Home Clinical Impression: Acute dyspnea, Paresthesia Condition: Stable Prescriptions: New gabapentin 300 mg capsule 300 mg PO DAILY PRN (Reason: pain) 5 Days Qty: 4 RF: 0 No Action hydrocodone-acetaminophen 7.5-300 mg tablet 1 tab PO Q6H PRN (Reason: surgery pain) RF: 0 ibuprofen 800 mg tablet 800 mg PO TID PRN (Reason: pain) Qty: 60 RF: 0 acetaminophen 325 mg capsule 325 mg PO Q4H PRN (Reason: fever or pain) Qty: 60 RF: 0 Discharge Orders: Discharge ED (Routine); Ordered 07/23/21 Ordered By: Shawn Duran Discharge Diet: Advance as tolerated Discharge Activity: Resume usual activity Patient Instructions: Paresthesia (ED) Activity Restrictions/Additional Instructions: Our case preparer and liner will have you follow-up with a Neurologist in the next few days. You would be expected to have a phone call with our case preparer and liner who will put you on the schedule. Come back to the emergency room if you have any worsening pain, fever/chills, nausea/vomiting, or any new or concerning complaints. Coding Level of Care Code ED Irrigation District Manager for Obie Wick
--- NOTE | 2021-07-22 23:34 | PC.NURSE ---
patient presents for lower left arm numbness for one day and high blood pressure. stroke scale zero, accucheck 84, ekg completed, armando reports left arm numbness started after moving heavy boxes yesterday, also reports sob for 6 hours and rlq abdominal pain for 3 days, no distress noted, head to toe assessment wnl.
[2021-07-22 23:45] VITALS: BP 168/115; PULSE 87; RESP 18; TEMP 35.9; O2SAT 98; BMI 37.1
[2021-07-22 23:46] LABS: Troponin(5th) Baseline 6 ng/L (0-10)
[2021-07-22 23:52] VITALS: O2SAT 98
[2021-07-22 23:56] LABS: Anion Gap 14.6 (5-19); Blood Urea Nitrogen 7 mg/dL (6-20); Carbon Dioxide 24 mmol/L (22-29); Chloride 100 mmol/L (98-107); Glomerular Filtration Rate 115.9 mL/min (90-130); Glucose 80 mg/dL (65-115); Osmolality Calculated 277 mOsm/kg (285-295); Potassium 3.6 mmol/L (3.5-5.1); Sodium 135 mmol/L (136-145)
--- NOTE | 2021-07-23 01:04 | PC.NURSE ---
report to car hicks
[2021-07-23 01:32] LABS: Add Urine Microscopic? NO; Charge for UA Resulting for Rev
[2021-07-23 01:39] LABS: Bilirubin Urine Neg (Negative); Blood Urine Neg (Negative); Glucose Urine UA Norm (Normal); Ketones Urine Negative (Negative); Leukocyte Esterase Urine Negative (Negative); Nitrate Urine Negative (Negative); Protein Urine Neg (Negative); Specific Gravity, Urine 1.005 (1.005-1.030); Urine Appearance Clear (CLEAR); Urine Color Yellow (Yellow); Urobilinogen Urine Norm (Negative); pH Urine 5 (5-7)
[2021-07-23 02:03] LABS: Troponin 5 2HR Delta 0 ABS# (0-10)
[2021-07-23 02:20] VITALS: BP 147/80; PULSE 78; RESP 20; O2SAT 97
--- NOTE | 2021-07-23 10:57 | DCPLANNER ---
biostatistics manager had message to schedule a follow up appointment with neurology. biostatistics manager emailed patients information to the neurology clinic. Patients information will be printed and reviewed. Clinic will call patient with appointment information.
--- NOTE | 2021-07-30 12:50 | DCPLANNER ---
manager post was notified by Dr. Robertson office stating that clinic tried to reach patient but was unable to speak with patient and unable to leave a voicemail for patient at this time.
== END 2021-07-23 02:15 | disposition home or self-care (01) ==
PROVIDERS: Emergency Provider Emergency Medicine
DX: R20.2 Paresthesia of skin (principal); R06.00 Dyspnea, unspecified; F17.210 Nicotine dependence, cigarettes, uncomplicated
CPT/HCPCS: 36415; 36416; 71045; 80048; 81003; 82962; 84484; 84702; 85025; 93005; 99283

== ENCOUNTER → 2021-09-14 15:31 | Outpatient (BNVA) | payer MEDICAID, SELFPAY | PROVIDERS: PCP Family Medicine; Visit Provider Specialist | DX: G56.02 Carpal tunnel syndrome, left upper limb (principal); R20.0 Anesthesia of skin; F17.210 Nicotine dependence, cigarettes, uncomplicated | CPT/HCPCS: 95908; 95909 ==

== ENCOUNTER 2021-09-16 09:07 | Outpatient (CLI) | payer MEDICAID, SELFPAY ==
[2021-09-16 09:59] VITALS: BMI 47.6
--- NOTE | 2021-09-16 10:04 | NMCV_ITS ---
NM irvin perf SPECT r/s* [id number] Ally Perez Age: 30 Gender: F : 1990 Exam Date: 09/16/2021 10:48 Ordering Phys: Mitchell Flood M.D ([email or web address]) Technologist: AMARA Perez Exam Location: [facility] Indications: CHEST PAIN STRESS TEST [facility] IMAGE PROTOCOL Rest/Stress 1 Lexiscan Day Radiopharmaceutical Dose (mCi) Administration Site Administered by Rest: Tc-99m 10.5 IV AMARA Anne Sestamibi Stress:Tc-99m 33.0 IV AMARA Butler Sestamibi Rest: 16-Sep-2021 60 Discovery 630 Stress: 16-Sep-2021 30 Discovery 630 0.4mg Lexiscan. Images obtained in supine and prone position. SPECT RESULTS Technical Quality: Excellent Raw Data Analysis: Normal Image Corrections: No attenuation or motion correction applied Summed Stress Score: 3 Summed Rest Score: 3 Summed Difference Score: 1 PERFUSION FINDINGS There is small in size, partially reversible perfusion defect noted in the apical inferior and apical lateral rossi. This is consistent with prior small infarct with ivelisse-infarct ischemia. FUNCTIONAL RESULTS (calculated via Gated SPECT) Stress Image LV EF (%): 63 Stress EDV (mL):104 TID: 1.07 Stress ESV (mL):38 FUNCTIONAL FINDINGS: There is normal left ventricular systolic function. IMPRESSIONS 1. Abnormal myocardial perfusion imaging with evidence of small sized prior infarct with ivelisse-infarct ischemia in apical inferior and apical lateral rossi. 2. LV systolic function is normal. Mitchell Flood MD (Electronically Signed) Final Date: 21 September 2021 12:46 S
--- NOTE | 2021-09-16 10:04 | ECG_ITS ---
[facility] Test Date: 2021-09-16 Pat Name: Ally Perez Department: Room: Gender: Female Baffle Installer: : 1990 Requested By: Mitchell Flood Order Number: [id number] Jesús MD: Mitchell Flood M.D. Interpretive Statements NAME OF STUDY: LEXISCAN SESTAMIBI STRESS TEST INDICATION: [Chest Pain] Procedure: At the baseline, the blood pressure was 125/68 mmHg with a heart rate of 75 bpm. The electrocardiogram showed normal sinus rhythm, normal axis with normal ST and T's. The Lexiscan was infused over a period of 20 seconds. A total of 0.4 mg of Lexiscan was infused. The stress phase was continued for a total of 5 minutes. Heart rate was at the end of stress phase was 85 bpm and a blood pressure of 130/77 mmHg. The EKG at the peak infusion revealed since normal sinus rhythm with no significant ST-T wave changes. Sestamibi was injected 20 seconds after the Lexiscan infusion. Blood pressure at the end of recovery phase was 121/76 mmHg with a heart rate of 76 bpm. Conclusion: 1. Normal EKG response to Lexiscan infusion 2. No Lexiscan induced chest pain or cardiac arrhythmia. 3. Normal blood pressure and heart rate response. 4. Sestamibi/sestamibi perfusion scan pending; see separate report. Electronically Signed On 10-17-2021 11:56:59 PICK UP by Mitchell Flood M.D. [id number]
[2021-09-16] MEDS: regadenoson 0.4 Mg/5 ml Syringe IVP (11:36)
[2021-09-16 11:53] VITALS: BP 121/76; PULSE 76
== END 2021-09-16 09:08 | disposition home or self-care (01) ==
PROVIDERS: PCP Family Medicine; Visit Provider Internal Medicine
DX: R07.9 Chest pain, unspecified (principal); R06.02 Shortness of breath
CPT/HCPCS: 78452; 93017; A9500; J2785

== ENCOUNTER 2021-09-29 15:35 | Outpatient (CLI) | payer MEDICAID, SELFPAY ==
--- NOTE | 2021-09-29 15:45 | USCV_ITS ---
Ally Perez Age: 30 Gender: F : 1990 Exam Date: 09/29/2021 15:50 Ordering Phys: Mitchell Flood M.D ([email or web address]) Technologist: GRICELDA Exam Location: [facility] [place] Indication: Chest pain BP: 147 / 80 HR: 64 Rhythm: Sinus Technical Quality: Adequate MEASUREMENTS (Male / Female) Normal Values 2D ECHO LV Diastolic Diameter PLAX 3.8 cm 4.2 - 5.9 / 3.9 - 5.3 cm LV Systolic Diameter PLAX 2.5 cm IVS Diastolic Thickness 0.7 cm 0.6 - 1.0 / 0.6 - 0.9 cm IVS Systolic Thickness 1.0 cm LVPW Diastolic Thickness 1.7 cm 0.6 - 1.0 / 0.6 - 0.9 cm LVPW Systolic Thickness 1.8 cm LVOT Diameter 2.0 cm LV Ejection Fraction 2D Teich 64.2 % LV Ejection Fraction MOD 2C 64.3 % LV Ejection Fraction 2C AL 63.0 % LA Diameter 3.3 cm LA Width 3.5 cm LA Height 5.3 cm RA Width 3.3 cm RA Height 4.5 cm Aorta at Sinotubular Diameter 2.3 cm M-MODE Aortic Annulus Diameter 2.9 cm LA Ao Ratio MM 1.2 MV E Point Septal Separation 0.6 cm DOPPLER AV Peak Velocity 121.0 cm/s LVOT Peak Velocity 114.0 cm/s AV Area Cont Eq vti 2.7 cm squared AV Area Cont Eq pk 3.0 cm squared MV Area PHT 3.6 cm squared Mitral E to A Ratio 1.0 MV E' Velocity 43.5 cm/s Mitral E to MV E' Ratio 7.1 Mitral E to LV E' Lateral Ratio 6.6 Mitral E to LV E' Septal Ratio 7.6 TR Peak Velocity 255.8 cm/s TR Peak Gradient 26.2 mmHg TR Mean Velocity 197.3 cm/s TR Mean Gradient 16.4 mmHg TR Velocity Time Integral 72.4 cm RV Acceleration Time 0.1 s RV Ejection Time 0.3 s RV AcT/ET 0.4 FINDINGS Left Ventricle Normal left ventricular size, systolic function and wall thickness, with no regional wall motion abnormalities. Left ventricular ejection fraction is estimated at 63 %. Normal diastolic function. Right Ventricle Normal right ventricular size and systolic function. Right ventricular systolic pressure 29 mmHg. Right Atrium Normal right atrial size. Right atrial pressure estimated at 3 mmHg. Left Atrium Normal left atrial size. Mitral Valve Mildly thickened mitral valve. No mitral valve stenosis. Trace mitral valve regurgitation. Aortic Valve Structurally normal trileaflet aortic valve. No aortic valve stenosis. No aortic valve regurgitation. Tricuspid Valve Structurally normal tricuspid valve. No tricuspid valve stenosis. Trace tricuspid valve regurgitation. Pulmonic Valve Structurally normal pulmonic valve. No pulmonary valve stenosis. Trace pulmonary valve regurgitation. Pericardium No pericardial effusion. Aorta Normal size aortic root and proximal ascending aorta. Normal- sized inferior vena cava. CONCLUSIONS 1. Normal left ventricular size, systolic function and wall thickness, with no regional wall motion abnormalities. Left ventricular ejection fraction is estimated at 63 %. Normal diastolic function. 2. Normal right ventricular size and systolic function. 3. Pulmonary artery pressure estimated at 29 mmHg. 4. No significant valvular abnormality. 5. No prior similar studies to compare. Amberly Orozco MD (Electronically Signed) Final Date: 29 September 2021 18:19 S
== END 2021-09-29 15:36 | disposition home or self-care (01) ==
LOC: RAD 15:37
PROVIDERS: PCP Family Medicine; Visit Provider Internal Medicine
DX: R07.9 Chest pain, unspecified (principal)
CPT/HCPCS: 93306

== ENCOUNTER 2021-12-15 12:12 | Outpatient (CLI) | payer BC, MEDICAID, SELFPAY ==
--- NOTE | 2021-12-15 12:21 | XR_ITS ---
WS: [id number] Exam: XR chest 2V* [id number] Date/Time of Exam: 12/15/2021 12:36 PM Reason For Exam: HX OF POSITIVE TB SKIN TEST Comparison 07/22/2021. Findings: The lungs are clear and fully expanded. Costophrenic angles are sharp. No infiltrates. Bronchovascula r relief appears normal. Cardiac silhouette is unremarkable. Bony elements are intact. XR/XR chest 2V* [id number] IMPRESSION: Unremarkable chest radiograph.
== END 2021-12-15 12:13 | disposition home or self-care (01) ==
PROVIDERS: PCP Family Medicine; Visit Provider Nurse Practitioner Family
DX: R76.11 Nonspecific reaction to tuberculin skin test without active tuberculosis (principal)
CPT/HCPCS: 71046

== ENCOUNTER 2022-09-16 18:41 | Emergency (ER) | payer BC, MEDICAID, SELFPAY ==
--- NOTE | 2022-09-16 18:49 | XRR_ITS ---
PROCEDURE INFORMATION: Exam: XR Chest Exam date and time: 09/16/2022 8:08 PM Age: 31 years old Clinical indication: Pain; Chest pressure; Additional info: Cp TECHNIQUE: Imaging protocol: Radiologic exam of the chest. Views: 1 view. COMPARISON: CR XR chest 2V* [id number] 12/15/2021 12:38 PM FINDINGS: Lungs: Unremarkable. No consolidation. Pleural spaces: Unremarkable. No pleural effusion. No pneumothorax. Heart/Mediastinum: Unremarkable. No cardiomegaly. Bones/joints: Unremarkable. XR/XR chest 1V portable [id number] IMPRESSION: No acute findings.
[2022-09-16 18:55] VITALS: BP 144/83; PULSE 101; RESP 16; TEMP 36.4; O2SAT 95
--- NOTE | 2022-09-16 19:00 | ECG_ITS ---
[facility] Test Date: 2022-09-16 Pat Name: Ally Bardales Department: Room: Gender: Female Telephone Installer: : 1990 Requested By: Rob Harris Order Number: [id number] Jesús MD: Mitchell Flood M.D. Measurements Intervals Terry Rate: 99 P: 42 SC: 145 QRS: 39 QRSD: 94 T: 50 QT: 360 QTc: 463 Interpretive Statements SINUS RHYTHM No previous ECG available for comparison Electronically Signed On 09-17-2022 11:10:14 COUNTRY DIRECTOR by Mitchell Flood M.D. [id number]
--- NOTE | 2022-09-16 19:06 | W.ED.CHESTPA ---
HPI - Chest Pain General: Chief Complaint: Chest Pain Stated Complaint: cp Time Seen by Provider: 09/16/22 19:05 Source: patient Mode of arrival: ambulatory History of Present Illness: 31-year-old female presents to the ER with complaints of chest pain began just prior to arrival. She is having some chest discomfort she been arguing with some family members and began to have the discomfort. He is still episode about a year ago had a stress test reviewed in the chart it appears to have been abnormal but she did miss several appointments after the echocardiogram done shortly after the stress test was unremarkable. She not had any further evaluation since then. No other episodes of chest pain. MD complaint: chest pain Onset (ago): minute(s) Timing of current episode: episodic Prior episodes: Yes Onset: other (Associated with stress) Pain location: left chest Pain radiation: none Severity: moderate Quality: aching and heaviness Relieving factors: nothing Exacerbating factors: nothing Associated symptoms: Deny abdominal pain, diaphoresis, dyspnea, fever(s), leg edema, nausea, palpitations, sense of impending doom, syncope or vomiting Treatment prior to arrival: none Review of Systems Const: Denies: fever(s), chills or diaphoresis Card: Denies: chest pain, palpitations or syncope Resp: Denies: dyspnea GI: Denies: abdominal pain, nausea or vomiting PFSH ED PFSH: Medical History Menorrhagia Family History Father Hypertension Heart disease Mother Hypertension Heart disease Grandfather Colon cancer, Onset Age: 70 paternal Denies family history of Ovarian cancer Diabetes Clotting disorder Hyperlipidemia Breast cancer Anesthesia complication Bleeding disorder Uterine cancer Thyroid condition Stroke Female Reproductive History: Date of last menstrual period: 01/15/21 Physical Exam Const: COMMON NORMALS: no acute distress GENERAL APPEARANCE: cooperative and comfortable ORIENTATION/CONSCIOUSNESS: Yes awake, Yes oriented to person, Yes oriented to place and Yes oriented to time HENMT: COMMON NORMALS: normocephalic, atraumatic, hearing grossly normal bilaterally, external ears normal, EAC's normal, TM's normal bilaterally, Normal nasal mucous membranes and turbinates present, moist oral mucous membranes and oropharynx normal HEAD & SCALP: normocephalic and atraumatic NOSE: Normal nasal mucous membranes and turbinates present EXTERNAL EAR: Yes external ears normal EXTERNAL AUDITORY CANAL: EAC's normal TYMPANIC MEMBRANE: TM's normal bilaterally Eye: COMMON NORMALS: Equal, round and reactive pupils present, EOMs intact bilaterally, conjunctivae normal and no scleral icterus CONJUNCTIVA: Yes conjunctivae normal PUPIL: Yes Equal, round and reactive pupils present Neck/C-Spine: COMMON NORMALS: full ROM, no lymphadenopathy, supple and no JVD Lymph: LYMPHATIC: no lymphadenopathy noted and no lymphedema noted Resp: COMMON NORMALS: normal respiratory effort, No retractions, No use of accessory muscles and clear to auscultation bilaterally AUSCULTATION: clear to auscultation bilaterally Cardio: COMMON NORMALS: no JVD, regular rate, regular rhythm and No murmurs present (Cardio) RATE: regular rate RHYTHM: regular rhythm GI: COMMON NORMALS: Soft to palpation and No hepatosplenomegaly present AUSCULTATION: Yes normoactive bowel sounds PALPATION: Yes Soft to palpation, No Tenderness to palpation present (GI), No Guarding due to palpation present (GI) and Yes No hepatosplenomegaly present Extremity: COMMON NORMALS: normal to inspection, capillary refill normal, no clubbing, cyanosis or edema, no calf tenderness and no pedal edema Neuro: SENSORIUM/ORIENTATION: Yes oriented to person, Yes oriented to place and Yes oriented to time Skin: COMMON NORMALS: no rashes or lesions noted GENERAL SKIN EXAM: no rashes or lesions noted Course Vital Signs: Vital signs: Vital Signs Temperature 97.6 F 09/16/22 18:55 Pulse Rate 96 09/16/22 21:34 Respiratory Rate 16 09/16/22 21:34 Blood Pressure 162/105 09/16/22 21:34 Pulse Oximetry 98 09/16/22 21:34 Oxygen Delivery Me thod 09/16/22 21:34 MDM - Chest Pain Medical Decision Making Labs imaging and EKG reviewed EKG does not show any acute changes troponins unremarkable. Patient did have a questionably positive stress test last year but did not have any follow-up on asked her about this she states she simply became scared and did not make to follow-up. Encouraged her to continue metoprolol at the amlodipine also asked her to take a baby aspirin a day she said she cannot that she has an anaphylactic reaction to aspirin. Encouraged her to follow-up with cardiology return if is problems. Medical Records I reviewed the patient's medical records. Lab Data I reviewed the patient's lab results. 09/16/22 21:05 09/16/22 19:24 Radiology Impressions Chest X-Ray 09/16/22 18:49 IMPRESSION: No acute findings. Laboratory Results WBC 7.8 10^3/uL (4.0-10.0) 09/16/22 21:05 Corrected WBC Cancelled 09/16/22 19:24 RBC 4.30 10^6/uL (4.1-5.3) 09/16/22 21:05 Hgb 14.0 g/dL (11.5-15.3) 09/16/22 21:05 Hct 41.3 % (37.0-47.0) 09/16/22 21:05 MCV 96.0 fl (81-99) 09/16/22 21:05 MCH 32.6 pg (28.0-34.0) 09/16/22 21:05 MCHC 33.9 g/dL (30.0-36.0) 09/16/22 21:05 RDW 13.0 % (12.1-15.1) 09/16/22 21:05 Plt Count 443 10^3/cmm (130-400) H 09/16/22 21:05 MPV 10.1 fL (7.4-10.4) 09/16/22 21:05 Gran % Cancelled 09/16/22 19:24 Neut % (Auto) 54.9 % 09/16/22 21:05 Lymph % (Auto) 33.2 % 09/16/22 21:05 [place] % (Auto) 9.3 % 09/16/22 21:05 Eos % (Auto) 1.4 % 09/16/22 21:05 Baso % (Auto) 0.9 % 09/16/22 21:05 Neut # (Auto) 4.26 10^3/uL (1.8-7.7) 09/16/22 21:05 Lymph # (Auto) 2.6 10^3/uL (0.8-4.8) 09/16/22 21:05 [place] # (Auto) 0.7 10^3/uL (0.2-0.9) 09/16/22 21:05 Eos # (Auto) 0.1 10^3/uL (0.0-0.8) 09/16/22 21:05 Baso # (Auto) 0.1 10^3/uL (0.0-0.1) 09/16/22 21:05 Absolute Gran (auto) Cancelled 09/16/22 19:24 Nucleated RBC % (auto) 0 % 09/16/22 21:05 Nucleated RBCs # 0.0 /100WBC 09/16/22 21:05 Sodium 136 mmol/L (136-145) 09/16/22 19:24 Potassium 4.2 mmol/L (3.5-5.1) 09/16/22 19:24 Chloride 106 mmol/L (98-107) 09/16/22 19:24 Carbon Dioxide 18 mmol/L (22-29) L 09/16/22 19:24 Anion Gap 16.2 (5-19) 09/16/22 19:24 BUN 14 mg/dL (6-20) 09/16/22 19:24 Creatinine 1.1 mg/dL (0.5-0.9) H 09/16/22 19:24 GFR Calculation 57.2 mL/min (90-130) L 09/16/22 19:24 Glucose 96 mg/dL (65-115) 09/16/22 19:24 Calculated Osmolality 282 mOsm/kg (285-295) L 09/16/22 19:24 Calcium 8.0 mg/dL (8.5-10.5) L 09/16/22 19:24 Total Bilirubin 0.2 mg/dL (0.15-1.2) 09/16/22 19:24 AST 21 U/L (0-32) 09/16/22 19:24 ALT 13 U/L (0-33) 09/16/22 19:24 Alkaline Phosphatase 87 U/L (35-105) 09/16/22 19:24 Troponin T Baseline 6 ng/L (0-10) 09/16/22 19:24 Troponin T 120 Minute 6.00 ng/L (0-10) 09/16/22 21:05 Delta Troponin T 0 ABS# (0-10) 09/16/22 21:05 Total Protein 6.2 g/dL (6.6-8.7) L 09/16/22 19:24 Albumin 3.6 g/dL (3.5-5.2) 09/16/22 19:24 Globulin 2.6 g/dL (1.3-4.6) 09/16/22 19:24 Discharge Plan Discharge Patient Disposition: Home Clinical Impression: Atypical chest pain, Hypertension Condition: Stable Prescriptions: New amlodipine 2.5 mg tablet 2.5 mg PO DAILY Qty: 30 0RF No Action hydroxyzine HCl 25 mg tablet 25 mg PO QID PRN paroxetine HCl 20 mg tablet 20 mg PO DAILY metoprolol tartrate 25 mg tablet 25 mg PO BID Qty: 180 3RF ibuprofen 800 mg tablet 800 mg PO TID PRN (Reason: pain) Qty: 60 0RF acetaminophen 325 mg capsule 325 mg PO Q4H PRN (Reason: fever or pain) Qty: 60 0RF Discharge Orders: Discharge ED (Routine); Ordered 09/16/22 Ordered By: Hong Dixon Referrals: Cristo Stone MD [Primary Care Provider] - Discharge Diet: Usual diet Discharge Activity: Resume usual activity Patient Instructions: Opioid Safety, Pain Management Activity Restrictions/Additional Instructions: You were seen today for chest pain. Your cardiac enzymes and EKG were unremarkable. Continue previously prescribed medications. In addition start amlodipine daily for your blood pressure. Previous stress test done last year was abnormal you should follow-up with cardiology regarding this. Coding Level of Care Code ED Network Relations Consultant for Chg Fwd Exam Comprehensive
[2022-09-16 19:30] VITALS: BP 162/113; PULSE 110; RESP 16; O2SAT 98
[2022-09-16 19:51] LABS: Albumin Level 3.6 g/dL (3.5-5.2); Alkaline Phosphatase 87 U/L (35-105); Blood Urea Nitrogen 14 mg/dL (6-20); Carbon Dioxide 18 mmol/L (22-29); Chloride 106 mmol/L (98-107); Globulin 2.6 g/dL (1.3-4.6); Glomerular Filtration Rate 57.2 mL/min (90-130); Glucose 96 mg/dL (65-115); Osmolality Calculated 282 mOsm/kg (285-295); Sodium 136 mmol/L (136-145); Total Bilirubin 0.2 mg/dL (0.15-1.2); Total Protein 6.2 g/dL (6.6-8.7)
[2022-09-16 19:53] LABS: Alanine Aminotransferase 13 U/L (0-33); Anion Gap 16.2 (5-19); Aspartate Amino Transferase 21 U/L (0-32); Potassium 4.2 mmol/L (3.5-5.1)
[2022-09-16 20:10] LABS: Troponin(5th) Baseline 6 ng/L (0-10)
--- NOTE | 2022-09-16 20:55 | ECG_ITS ---
[facility] Test Date: 2022-09-16 Pat Name: Ally Bardales Department: Room: Gender: Female Mandrel Puller: : 1990 Requested By: Rob Harris Order Number: [id number] Jesús MD: Mitchell Flood M.D. Measurements Intervals [place] Rate: 67 P: 53 ME: 162 QRS: 63 QRSD: 105 T: 43 QT: 408 QTc: 432 Interpretive Statements SINUS RHYTHM WITH SINUS ARRHYTHMIA No previous ECG available for comparison Electronically Signed On 09-17-2022 11:11:47 [employer] by Mitchell Flood M.D. [id number]
[2022-09-16 21:29] LABS: Basophils # 0.1 10^3/uL (0.0-0.1); Basophils % 0.9 %; Eosinophils # 0.1 10^3/uL (0.0-0.8); Eosinophils % 1.4 %; Hematocrit 41.3 % (37.0-47.0); Lymphocytes # 2.6 10^3/uL (0.8-4.8); Lymphocytes % 33.2 %; Mean Corpuscular HGB Conc 33.9 g/dL (30.0-36.0); Mean Corpuscular Hemoglobin 32.6 pg (28.0-34.0); Mean Platelet Volume 10.1 fL (7.4-10.4); Monocytes # 0.7 10^3/uL (0.2-0.9); Monocytes % 9.3 %; Neutrophils # 4.26 10^3/uL (1.8-7.7); Neutrophils % 54.9 %; Nucleated Red Blood Cells % 0 %; Platelet Count 443 10^3/cmm (130-400); White Blood Count 7.8 10^3/uL (4.0-10.0)
[2022-09-16 21:34] VITALS: BP 162/105; PULSE 96; RESP 16; O2SAT 98
[2022-09-16 21:50] LABS: Troponin 5 2HR Delta 0 ABS# (0-10)
[2022-09-16] MEDS: metoprolol tartrate 25 mg Tablet PO (21:58)
[2022-09-16 22:30] VITALS: BP 171/129; PULSE 85; RESP 16; O2SAT 98
== END 2022-09-16 22:40 | disposition home or self-care (01) ==
PROVIDERS: Emergency Medicine; Emergency Provider Family Medicine; PCP Family Medicine
DX: R07.89 Other chest pain (principal); I10 Essential (primary) hypertension
CPT/HCPCS: 36415; 71045; 80053; 84484; 85025; 93005; 99285